=== PATIENT | female | born 1970 | race Hispanic/Latino ===

== ENCOUNTER → 2023-09-25 | Outpatient (CLI) | payer BC | END | disposition home or self-care (01) | LOC: RAH 13:58 | PROVIDERS: ATTEND Family Medicine | DX: Z12.31 Encounter for screening mammogram for malignant neoplasm of breast (principal); R92.323 Mammographic fibroglandular density, bilateral breasts; R92.0 Mammographic microcalcification found on diagnostic imaging of breast | CPT/HCPCS: 77067 ==

== ENCOUNTER → 2023-10-09 | Outpatient (CLI) | payer BC | END | disposition home or self-care (01) | LOC: RAH 13:38 | PROVIDERS: ATTEND Family Medicine | DX: R92.321 Mammographic fibroglandular density, right breast (principal); R92.0 Mammographic microcalcification found on diagnostic imaging of breast | CPT/HCPCS: 76641; 77065 ==